=== PATIENT | male | born 1975 | race Caucasian/White ===

== ENCOUNTER 2019-01-24 12:38 | Inpatient (IN) | payer OTHER ==
[~2019-01-24] VITALS: Ht 182.9 cm; Wt 107.8 kg
--- NOTE | 2019-01-24 13:41 | NUR ---
LOSS PREVENTION AGENT: PT TO XRAY, GAIT STEADY, THEN TO GO TO ROOM.
--- NOTE | 2019-01-24 13:54 | NUR ---
TASK RN: PT AMBULATORY TO ROOM 18 FROM [facility] FOR C/O CP STARTED A FEW WEEKS AGO HAS BEEN ON/OFF SINCE THEN. PT DESCRIBES CP STABBING AND LASTING ABOUT 20 MIN EACH TIME IT HAPPENS. PT CURRENTLY DENIES CP AT THIS TIME. PT RESTING ON DANIEL. [place]. VSS. MONITORS APPLIED. EKG COMPLETED AT 1245 IN TRIAGE. WARM BLANKET PROVIDED.
[2019-01-24 14:05] LABS: BASOPHILS # (AUTO) 0.18 x10^3/uL (0-0.1); BASOPHILS % (AUTO) 1 % (0-1); EOSINOPHILS # (AUTO) 0.21 x10^3/uL (0-0.4); EOSINOPHILS % (AUTO) 1 % (1-7); LYMPHOCYTES # (AUTO) 2.95 x10^3/uL (1-3.4); LYMPHOCYTES % (AUTO) 20 % (22-44); MD NO; MEAN CORPUSCULAR HEMOGLOBIN 31.3 pg (27.5-34.5); MEAN CORPUSCULAR HGB CONC 33.4 g/dL (33.2-36.2); MEAN CORPUSCULAR VOLUME 93.6 fL (81-97); MEAN PLATELET VOLUME 8.8 fL (7.4-10.4); MONOCYTES # (AUTO) 1.23 x10^3/uL (0.2-0.8); MONOCYTES % (AUTO) 8 % (2-9); NEUTROPHILS # (AUTO) 10.24 x10^3/uL (1.8-6.8); NEUTROPHILS % (AUTO) 69 % (42-75); PLATELET COUNT 284 x10^3/uL (130-400); RED BLOOD COUNT 5.38 x10^6/uL (4.38-5.82); RED CELL DISTRIBUTION WIDTH 14.4 % (9.4-14.8)
[2019-01-24 14:16] LABS: ALANINE AMINOTRANSFERASE 32 U/L (12-78); ALBUMIN 3.4 g/dL (3.4-5.0); ANION GAP 8 mmol/L (5-15); CALCIUM 8.8 mg/dL (8.5-10.1); CHLORIDE 108 mmol/L (98-107); CREATININE 0.91 mg/dL (0.7-1.3)
[2019-01-24 14:20] LABS: ALKALINE PHOSPHATASE 96 U/L (45-117); BILIRUBIN,TOTAL 0.4 mg/dL (0.2-1.0); TOTAL PROTEIN 7.9 g/dL (6.4-8.2); TROPONIN I < 0.015 ng/mL (0.000-0.045)
[2019-01-24] MEDS ORDERED: ASPIRIN 81 MG TABLET CHEW ONE (14:48)
[2019-01-24] MEDS ORDERED: ACETAMINOPHEN 500 MG TABLET ONE (14:48)
[2019-01-24] MEDS ORDERED: ACETAMINOPHEN 500 MG TABLET PO ONE (15:00)
[2019-01-24] MEDS ORDERED: ASPIRIN 81 MG TABLET CHEW PO ONE (15:00)
--- NOTE | 2019-01-24 15:05 | NUR ---
PT BACK FROM CT, MEDICATED PER JUN, PIV INITIATED. PT TO BE ADMITTED
[2019-01-24] MEDS ORDERED: IBUPROFEN 600 MG TABLET PO PRN (16:00)
[2019-01-24] MEDS: HEPARIN 5,000 UNITS/ML, 1ML SQ SCH (16:00)
[2019-01-24] MEDS ORDERED: NITROGLYCERIN 0.4 MG BOTTLE (25 TABS) SL PRN ×2 (16:00)
[2019-01-24] MEDS ORDERED: NITROGLYCERIN 0.4 MG/SPRAY SL PRN (16:00)
[2019-01-24] MEDS ORDERED: ASPIRIN 325 MG TABLET EC PO ONE (16:00)
[2019-01-24] MEDS ORDERED: hydrALAzine 20 MG/ML, 1ML IVPush PRN (16:00)
[2019-01-24] MEDS ORDERED: ACETAMINOPHEN 325 MG TABLET PO PRN (16:00)
[2019-01-24] MEDS ORDERED: DOCUSATE 100 MG CAPSULE PO PRN (16:00)
[2019-01-24] MEDS ORDERED: ASA/APAP/ CAFFEINE TABLET PO PRN (16:00)
[2019-01-24 16:13] LABS: TROPONIN I < 0.015 ng/mL (0.000-0.045)
--- NOTE | 2019-01-24 16:25 | NUR ---
ATTEMPTED TO CALL REPORT, TOLD RN ON LUNCH. RN TO CALL ME BACK
[2019-01-24 16:39] LABS: HEMOGLOBIN A1C 5.5 % (4.2-6.3)
--- NOTE | 2019-01-24 16:51 | NUR ---
REPORT CALLED TO RECIEVING RN
[2019-01-24 17:12] VITALS: BP 144/92
[2019-01-24 18:58] LABS: CULTURE INDICATED? NO; MICROSCOPIC NOT IND
[2019-01-24 19:12] LABS: TROPONIN I < 0.015 ng/mL (0.000-0.045)
[2019-01-24 19:53] VITALS: BP 125/84
[2019-01-24] MEDS ORDERED: OMNIPAQUE 350 MG/ML, 100ML BOTTLE ONE (20:50)
[2019-01-24 21:47] LABS: TROPONIN I < 0.015 ng/mL (0.000-0.045)
[2019-01-24] MEDS: CEFTRIAXONE PMX 1GM/50ML 50 ML IV SCH (22:03)
[2019-01-24] MEDS: SODIUM CHLORIDE FLUSH 10ML SYR IVF SCH (22:06)
[2019-01-24] MEDS ORDERED: IBUP-1902 PO (22:15)
[2019-01-24] MEDS ORDERED: RANI-467 PO (22:18)
[2019-01-24] MEDS: AZITHROMYCIN 500 MG in SODIUM CHLORIDE 0.9% 250 ML IV SCH (23:01)
[2019-01-25 00:35] VITALS: BP 123/81
[2019-01-25 05:02] LABS: BASOPHILS # (AUTO) 0.24 x10^3/uL (0-0.1); BASOPHILS % (AUTO) 2 % (0-1); EOSINOPHILS # (AUTO) 0.41 x10^3/uL (0-0.4); EOSINOPHILS % (AUTO) 3 % (1-7); LYMPHOCYTES # (AUTO) 4.45 x10^3/uL (1-3.4); LYMPHOCYTES % (AUTO) 34 % (22-44); MD NO; MEAN CORPUSCULAR HEMOGLOBIN 31.3 pg (27.5-34.5); MEAN CORPUSCULAR HGB CONC 33.2 g/dL (33.2-36.2); MEAN CORPUSCULAR VOLUME 94.5 fL (81-97); MEAN PLATELET VOLUME 9.1 fL (7.4-10.4); MONOCYTES # (AUTO) 1.33 x10^3/uL (0.2-0.8); MONOCYTES % (AUTO) 10 % (2-9); NEUTROPHILS # (AUTO) 6.68 x10^3/uL (1.8-6.8); NEUTROPHILS % (AUTO) 51 % (42-75); PLATELET COUNT 262 x10^3/uL (130-400); RED BLOOD COUNT 4.99 x10^6/uL (4.38-5.82); RED CELL DISTRIBUTION WIDTH 14.5 % (9.4-14.8)
[2019-01-25 05:16] LABS: ANION GAP 5 mmol/L (5-15); CALCIUM 8.5 mg/dL (8.5-10.1); CHLORIDE 109 mmol/L (98-107)
[2019-01-25 05:18] LABS: CHOL/HDL RATIO 3.5; CHOLESTEROL, TOTAL 222 mg/dL (140-239); HDL CHOL % 28 % (26-37); HDL CHOLESTEROL (DIRECT) 63 mg/dL (40-60); LDL CHOLESTEROL,CALCULATED 135 mg/dL (54-169); LDL/HDL RATIO 2.1 (0.5-3.0); TRIGLYCERIDES 120 mg/dL (50-200); VLDL CHOLESTEROL 24 mg/dL (0-25)
[2019-01-25] MEDS: ASPIRIN 325 MG TABLET EC PO SCH (05:49)
[2019-01-25] MEDS: HEPARIN 5,000 UNITS/ML, 1ML SQ SCH ×3 (05:54→20:19)
[2019-01-25] MEDS ORDERED: ASPIRIN 325 MG TABLET EC PO SCH (06:00)
[2019-01-25 08:00] VITALS: BP 126/64
[2019-01-25] MEDS: SODIUM CHLORIDE FLUSH 10ML SYR IVF SCH ×2 (09:00→20:19)
[2019-01-25 14:06] VITALS: BP 130/87
[2019-01-25] MEDS: CEFTRIAXONE PMX 1GM/50ML 50 ML IV SCH (19:52)
[2019-01-25 20:15] VITALS: BP 128/85
[2019-01-25] MEDS: AZITHROMYCIN 500 MG in SODIUM CHLORIDE 0.9% 250 ML IV SCH (22:28)
[2019-01-26 03:52] VITALS: BP 114/73
[2019-01-26] MEDS: HEPARIN 5,000 UNITS/ML, 1ML SQ SCH ×2 (06:00→12:29)
[2019-01-26] MEDS: ASPIRIN 325 MG TABLET EC PO SCH (06:00)
[2019-01-26] MEDS: SODIUM CHLORIDE FLUSH 10ML SYR IVF SCH (08:20)
[2019-01-26 08:35] LABS: BASOPHILS # (AUTO) 0.11 x10^3/uL (0-0.1); BASOPHILS % (AUTO) 1 % (0-1); EOSINOPHILS # (AUTO) 0.44 x10^3/uL (0-0.4); EOSINOPHILS % (AUTO) 4 % (1-7); LYMPHOCYTES # (AUTO) 4.19 x10^3/uL (1-3.4); LYMPHOCYTES % (AUTO) 35 % (22-44); MD NO; MEAN PLATELET VOLUME 8.7 fL (7.4-10.4); MONOCYTES % (AUTO) 10 % (2-9); NEUTROPHILS # (AUTO) 5.98 x10^3/uL (1.8-6.8); NEUTROPHILS % (AUTO) 50 % (42-75); PLATELET COUNT 259 x10^3/uL (130-400); RED BLOOD COUNT 5.19 x10^6/uL (4.38-5.82); RED CELL DISTRIBUTION WIDTH 14.2 % (9.4-14.8)
[2019-01-26 09:10] VITALS: BP 124/87
[2019-01-26] MEDS ORDERED: LIDODERM 5% PATCH TD ONE (11:30)
[2019-01-26 12:47] VITALS: BP 132/91
[2019-01-26] MEDS ORDERED: PROPOFOL 50 ML ONE (14:52)
[2019-01-26] MEDS ORDERED: OMEPRAZOLE 20 MG CAPSULE.DR PO SCH (16:00)
[2019-01-26] MEDS ORDERED: OMEP-110 PO (16:00)
== END 2019-01-26 16:54 | disposition home or self-care (01) | DRG 392 ==
LOC: ED 15:20 → INTOOBSV 15:31 → EDIP 15:31 → OBSVTOIN 15:38 → 5SO 16:58 → DCLOUNGE 01-26 16:48
PROVIDERS: ADMIT Internal Medicine; ATTEND Internal Medicine
DX: K21.9 Gastro-esophageal reflux disease without esophagitis (principal); D72.829 Elevated white blood cell count, unspecified; G44.209 Tension-type headache, unspecified, not intractable; Z68.32 Body mass index [BMI] 32.0-32.9, adult; Z80.6 Family history of leukemia; Z82.49 Family history of ischemic heart disease and other diseases of the circulatory system; Z87.891 Personal history of nicotine dependence; Z90.89 Acquired absence of other organs; Z82.3 Family history of stroke
CPT/HCPCS: 36415; 70450; 71046; 71260; 80048; 80053; 80061; 81003; 83036; 83605; 83690; 84145; 84443; 84484; 85025; 87040; 87205; 93005; 93017; 93306; 99285; G0378; J0456; J0696; J2704; Q9967; J7050